=== PATIENT | male | born 1990 | race Caucasian/White ===

== ENCOUNTER 2021-03-29 03:06 | Emergency (ER) | payer OTHER ==
[~2021-03-29] VITALS: Ht 180.3 cm; Wt 75.0 kg
[2021-03-29] MEDS ORDERED: IBUPROFEN 600MG TABLET PO ONE (03:45)
[2021-03-29 04:12] VITALS: BP 127/84
[2021-03-29] MEDS ORDERED: HYDR-4001 MT (04:36)
== END 2021-03-29 05:06 | disposition home or self-care (01) ==
LOC: ER 03:10
DX: S82.55XA Nondisplaced fracture of medial malleolus of left tibia, initial encounter for closed fracture (principal); W19.XXXA Unspecified fall, initial encounter; Y93.89 Activity, other specified; Y92.89 Other specified places as the place of occurrence of the external cause
CPT/HCPCS: 29515; 73610; 99283